=== PATIENT | female | born 1955 | race Caucasian/White ===

== ENCOUNTER → 2020-11-17 | Outpatient (CLI) | payer OTHER ==
[~2020-11-17] MED LIST: AMLO1TAB24 PO; CYAN500T14 PO; EPIP0.3I2 IM; LISI10TA22 PO; OYST1TAB5 PO; PRIS50TA PO; VITA50TA43 PO; VITMTA PO
== END ==
LOC: M LABSMTC 09:01
PROVIDERS: ATTEND Anesthesiology
DX: Z01.812 Encounter for preprocedural laboratory examination (principal); Z20.822 Contact with and (suspected) exposure to COVID-19

== ENCOUNTER 2020-11-22 12:07 | Day surgery (SDC) | payer OTHER ==
[~2020-11-22] VITALS: Ht 160 cm; Wt 88.5 kg
[~2020-11-22 12:07] MED LIST changes: +NS 1,000 ML IV ONE
[2020-11-22] MEDS ORDERED: propofoL 200 MG/20 ML VIAL As Ordered ONE ×2 (13:16→13:37)
--- NOTE | 2020-11-22 13:32 | ROOR ---
Patient Name: Brittany Harris Procedure Date: 11/22/2020 1:14 PM Date of : 1955 Age: 65 Room: [facility] Gender: Female Note Status: Finalized Procedure: Colonoscopy Indications: Screening for colorectal malignant neoplasm Providers: Douglas Lopez Jr, MD Referring MD: Blake Saldana MD Requesting Provider: Medicines: Propofol per Anesthesia Complications: No immediate complications. Procedure: Pre-Anesthesia Assessment: - Prior to the procedure, a History and Physical was performed, and patient medications and allergies were reviewed. The patient is competent. The risks and benefits of the procedure and the sedation options and risks were discussed with the patient. All questions were answered and informed consent was obtained. Patient identification and proposed procedure were verified by the physician and the nurse in the pre-procedure area and in the procedure room. Mental Status Examination: alert and oriented. Airway Examination: normal oropharyngeal airway and neck mobility. Respiratory Examination: clear to auscultation. CV Examination: normal. ASA Grade Assessment: II - A patient with mild systemic disease. After reviewing the risks and benefits, the patient was deemed in satisfactory condition to undergo the procedure. The anesthesia plan was to use moderate sedation / analgesia (conscious sedation). Immediately prior to administration of medications, the patient was re-assessed for adequacy to receive sedatives. The heart rate, respiratory rate, oxygen saturations, blood pressure, adequacy of pulmonary ventilation, and response to care were monitored throughout the procedure. The physical status of the patient was re-assessed after the procedure. The Colonoscope was introduced through the anus and advanced to the cecum, identified by appendiceal orifice and ileocecal valve. The colonoscopy was performed without difficulty. The patient tolerated the procedure well. Findings: The recto-sigmoid colon, sigmoid colon, descending colon, transverse colon, ascending colon, cecum, appendiceal orifice and ileocecal valve appeared normal. A diminutive polyp was found in the rectum. The polyp was hyperplastic. The polyp was removed with a cold snare. Resection and retrieval were complete. Impression: - The recto-sigmoid colon, sigmoid colon, descending colon, transverse colon, ascending colon, cecum, appendiceal orifice and ileocecal valve are normal. - One diminutive polyp in the rectum, removed with a cold snare. Resected and retrieved. Recommendation: - Discharge patient to home (ambulatory). - Repeat colonoscopy in 5-10 years for surveillance based on pathology results. Procedure Code(s): --- Professional --- 00301, Colonoscopy, flexible; with removal of tumor(s), polyp(s), or other lesion(s) by snare technique Diagnosis Code(s): --- Professional --- Z12.11, Encounter for screening for malignant neoplasm of colon K62.1, Rectal polyp CPT copyright 2019 [employer]. All rights reserved. The codes documented in this report are preliminary and upon signalman review may be revised to meet current compliance requirements. Douglas Lopez MD Douglas Lopez Jr, MD 11/22/2020 1:32:05 PM Electronically signed by Douglas Lopez Jr, MD Number of Addenda: 0 Note Initiated On: 11/22/2020 1:14 PM Estimated Blood Loss: Estimated blood loss: none.
[2020-11-22 13:51] VITALS: BP 145/67
== END 2020-11-22 13:55 | disposition home or self-care (01) ==
LOC: M OPP 12:07
PROVIDERS: ATTEND Surgery
DX: Z12.11 Encounter for screening for malignant neoplasm of colon (principal); K63.5 Polyp of colon; Z98.84 Bariatric surgery status; Z79.899 Other long term (current) drug therapy; Z91.030 Bee allergy status

== ENCOUNTER → 2020-12-25 | Outpatient (CLI) | payer OTHER ==
[~2020-12-25] MED LIST changes: -NS 1,000 ML IV ONE
--- NOTE | 2020-12-25 08:56 | REP ---
INDICATION: NECK PAIN. COMPARISON: No comparison C-spine imaging. TECHNIQUE: Sagittal and axial T1 and T2-weighted scans are acquired in the usual fashion with and without fat saturation. Sequences include spin echo, turbo spin-echo, and STIR imaging sequences. FINDINGS: There is straightening and reversal of the normal cervical lordosis. Cervical vertebral body heights are preserved. No bony destructive lesion is seen. There are degenerative spondylosis changes with reactive marrow edema on either side of the C7-T1 disc space. Degenerative disc changes are also noted at C6-7, C5-6, and C4-5. No extra-spinal abnormality is observed. Cervical cord is normal in course, caliber, and signal intensity on T1 and T2 weighted scans. Craniocervical junction is unremarkable. Axial and sagittal images at C2-3 show no evidence of disc protrusion, central canal stenosis, or foraminal stenosis. At C3-C4, there is minimal uncovertebral spurring. No disc protrusion or central canal stenosis is seen. At C4-C5, there is degenerative disc narrowing and with decreased signal intensity. There is moderate right-sided uncovertebral spurring producing mild to moderate right-sided neural foraminal narrowing. Canal size is borderline. The midline AP dimension of the thecal sac is 10 mm. At C5-C6, there is degenerative disc narrowing and diffuse mild disc bulging and early osteophytic ridging. There is bilateral uncovertebral spurring at C5-6, this produces minimal bilateral neural foraminal narrowing. Canal size is borderline similar to the more proximal level. AP dimension of the thecal sac is 9 mm. No cord compression. At C6-C7, there is degenerative disc narrowing and minimal posterior osteophytic ridging. No cord compression is seen. Central disc bulging is present. Neural foramina appear adequate. At the C7-T1 level, there is minimal diffuse disc bulging. No spinal stenosis or foraminal narrowing is seen. No significant abnormality is seen in T1-T2 or T2-T3 levels on sagittal images. IMPRESSION: Degenerative spondylosis changes. The most prominent abnormality is of moderate right-sided neural foraminal narrowing due to uncovertebral spurring at the C4-5 level. <Electronically signed by Leonides Stovall > 12/25/20 [id number]
== END ==
LOC: M RAD 07:46
PROVIDERS: ATTEND Chiropractor
DX: M54.12 Radiculopathy, cervical region (principal)

== ENCOUNTER → 2022-10-06 | Outpatient (REF) | payer OTHER, MEDICARE | LOC: M LAB REF 13:39 | PROVIDERS: ATTEND Family Medicine | DX: R19.7 Diarrhea, unspecified (principal) ==

== ENCOUNTER → 2024-12-01 | Outpatient (REF) | payer MEDICARE, OTHER ==
[2024-12-01 14:34] LABS: LDH LACTATE DEHYDROGENASE 200.0 U/L (120-246)
[2024-12-01 14:35] LABS: C REACTIVE PROTEIN QUANTITATIV 4.13 MG/DL (<1.0)
[2024-12-01 14:43] LABS: RHEUMATOID FACTOR QUANT 3.9 IU/ML (<14)
== END ==
LOC: M LAB REF 12:18
PROVIDERS: ATTEND Family Medicine
DX: M79.18 Myalgia, other site (principal); R21 Rash and other nonspecific skin eruption; R73.01 Impaired fasting glucose

== ENCOUNTER → 2025-03-13 | Outpatient (REF) | payer MEDICARE, OTHER ==
[2025-03-13 18:38] LABS: C REACTIVE PROTEIN QUANTITATIV < 0.50 MG/DL (<1.0); IRON (FE) 28 UG/DL (50-170); PERCENT SATURATION 6.4 % (13.2-45.0)
[2025-03-13 18:42] LABS: VITAMIN B12 LEVEL 365 PG/ML (211-911)
== END ==
LOC: M LAB REF 17:17
PROVIDERS: ATTEND Family Medicine
DX: D64.9 Anemia, unspecified (principal)